=== PATIENT | female | born 1940 | race Caucasian/White ===

== ENCOUNTER 2017-09-03 14:04 | Outpatient (CLI) | payer OTHER ==
--- NOTE | 2017-09-03 15:21 | US ---
EXAM: Ultrasound bilateral carotid duplex. HISTORY: Visual changes. COMPARISON: None available. TECHNIQUE: Multiple waldrop scale and color Doppler images were obtained. FINDINGS: Please note that estimates of internal carotid artery stenoses are based upon NASCET crite wil. Right carotid: Mild plaquing noted without 50% or greater stenosis. Peak systolic velocity measurem ent in the right internal carotid artery is 1.1 meters per second. Right internal to common carotid artery peak systolic velocity ratio measures 1.5. End diastolic velocity measurement in the right in ternal carotid artery is 0.3 meters per second. Flow in the right vertebral artery is antegrade. Left carotid: Mild plaquing noted without 50% or greater stenosis. Peak systolic velocity measureme nt in the left internal carotid artery is 0.9 meters per second. Left internal to common carotid art karen peak systolic velocity ratio measures 1.2. End diastolic velocity measurement in the left paid intern al carotid artery measures 0.3 meters per second. Flow in the left vertebral artery is antegrade. IMPRESSION: 1. No evidence for 50% or greater stenosis in the right or left internal carotid artery. 2. Antegrade flow in both vertebral arteries.
== END 2017-09-03 14:05 | disposition home or self-care (01) ==
LOC: RAD 14:04
PROVIDERS: ATTEND Family Medicine
DX: H53.10 Unspecified subjective visual disturbances (principal); I10 Essential (primary) hypertension

== ENCOUNTER 2017-11-20 12:46 | Emergency (ER) ==
[2017-11-20 12:56] VITALS: BP 160/92; TEMP 97.9; BMI 23.8
[2017-11-20] MEDS ORDERED: LIDOCAINE HCL 1% SDV IM STA (13:15)
[2017-11-20] MEDS ORDERED: LIDOCAINE HCL 1% SDV SUBCUT STA (13:15)
[2017-11-20] MEDS ORDERED: ROCEPHIN IM STA (13:15)
--- NOTE | 2017-11-20 14:28 | ED.PDOC ---
General ED Provider: Dr. MILLICENT SILVA Chief Complaint: Fall Stated Complaint: fall elbow pain, laceration groin pain Time Seen by Physician: 13:00 (see photos) Mode of Arrival: Walk-In Information Source: Patient Exam Limitations: No limitations Primary Care Provider: CB MAN Nursing and Triage Documentation Reviewed and Agree: Yes Does patient meet sepsis criteria?: Yes If yes, has appropriate treatment been initiated?: No System Inflammatory Response Syndrome: Not Applicable Sepsis Protocol: For patient's 13 years and over: Temp is 96.8 and below OR 101 and greater Pulse >90 BPM Resp >20/minute Acutely Altered Mental Status Are patient's symptoms suggestive of a new infection, such as: -Pneumonia -Skin, Soft Tissue -Endocarditis -UTI -Bone, Joint Infection -Implantable Device -Acute Abdominal Infection -Wound Infection -Meningitis -Blood Stream Catheter Infection -Unknown Trauma/Injury Complaint Exam - Trauma Complaint/Exam Location of Pain or Injury: Reports: Other (pelvis, elbow pain) Mechanism of Injury: Reports: Fall Onset/Duration: this morning was seen at [facility] Symptoms Are: Still present Timing of Treatment: Delayed Initial Severity: Moderate (pain elow left) Current Severity: Mild Character: Reports: Aching Aggravating: Reports: Movement Alleviating: Reports: Rest Associated Signs and Symptoms: Denies: LOC, Confusion, Memory loss, Lethargy, Vomiting, Bleeding Related History: Reports: Similar episode : No Penetrating Injury Risk Factors: Reports: None Related Surgical History: Reports: None Nexus Low Risk Criteria: No post-midline CS tender, No evidence of intoxicat., No Altered LOC, No distracting injuries Immobilization Removed Post Exam: No Glascow Coma Scale (see protocol): 15 Compartment Syndrome Risk Factors: Present: Pain Trauma Findings: Present: Pelvic tenderness Skin Findings: Present: Laceration (see photos ) Differential Diagnoses: Laceration, Sprain, Strain Review of Systems - Review Of Systems Constitutional: Reports: No symptoms Eyes: Reports: No symptoms Ears, Nose, Mouth, Throat: Reports: No symptoms Respiratory: Reports: No symptoms Cardiac: Reports: No symptoms GI: Reports: No symptoms : Reports: No symptoms Musculoskeletal: Reports: No symptoms Skin: Reports: Other (laceration see photos) Neurological: Reports: No symptoms Endocrine: Reports: No symptoms Hematologic/Lymphatic: Reports: No symptoms All Other Systems: Reviewed and Negative Past Medical History - Past Medical History Previously Healthy: Yes Endocrine: Reports: None Cardiovascular: Reports: None Respiratory: Reports: None Hematological: Reports: None Gastrointestinal: Reports: None Genitourinary: Reports: None Neuro/Psych: Reports: None Musculoskeletal: Reports: None Cancer: Reports: None Last Menstrual Period: NA - Surgical History General Surgical History: Reports: None - Family History Family History: Reports: None - Social History Smoking Status: Never smoker Hx Substance Use: No Alcohol Screening: None - Immunizations Tetanus Shot up to Date: Yes (GOT ONE AT [facility] TODAY) Physical Exam - Physical Exam Appearance: Well-appearing, No pain distress, Well-nourished Eyes: RAJANI, EOMI, Conjunctiva clear ENT: Ears normal, Nose normal, Oropharynx normal Respiratory: Airway patent, Breath sounds clear, Breath sounds equal, Respirations nonlabored Cardiovascular: RRR, Pulses normal, No rub, No murmur GI/: Soft, Nontender, No masses, Bowel sounds normal, No Organomegaly Musculoskeletal: Normal strength, ROM intact, No edema, No calf tenderness Skin: Warm, Dry (laceration see photos) Neurological: Sensation intact, Motor intact, Reflexes intact, Cranial nerves intact, Alert, Oriented Psychiatric: Affect appropriate, Mood appropriate Interpretation - Radiology Interpretation Radiology Interpretation By: Radiologist Procedures - Laceration/Wound Repair No standard instances Wound Description: Flap Wound Length (cm): 7cm Wound Width: 2cm Wound Depth: 4mm Wound Explored: Contaminated Wound Irrigated: Yes Wound Prep: Saline, Betadine Anesthesia: Lidocaine (10 ml plain) Wound Debrided: Minimal Undermining: Moderate Wound Margins: Vermilion border aligned Wound Repaired With: Sutures Suture Size and Type: 2 vicoryl, 10 and 3 prolene 15 sutures respectively Layer Closure?: Yes Deep Layer Suture Size and Type: see above see photos Sterile Dressing Applied?: No Splint Applied?: Yes Sling Applied?: Yes Critical Care Note - Critical Care Note Total Time (mins): 0 Course - Course Orders, Labs, Meds: Orders Category Date Time Status Ceftriaxone Sodium [Rocephin] MEDS 11/20/17 13:15 Discontinued 1 gm IM ONCE STA Lidocaine HCl/Pf [Lidocaine HCl 1% Sdv] MEDS 11/20/17 13:15 Discontinued 10 ml SUBCUT ONCE STA Lidocaine HCl/Pf [Lidocaine HCl 1% Sdv] MEDS 11/20/17 13:15 Discontinued 2.1 ml IM ONCE STA CT PELVIS W/O CONTRAST Stat RADS 11/20/17 14:19 Ordered ELBOW, LEFT MIN 3 VIEWS Stat RADS 11/20/17 14:18 Ordered Medications Discontinued Medications Generic Name Dose Route Start Last Admin Trade Name [place] PRN Reason Stop Dose Admin Ceftriaxone Sodium 1 gm 11/20/17 13:15 Rocephin IM 11/20/17 13:16 ONCE STA Lidocaine HCl 10 ml 11/20/17 13:15 Lidocaine Hcl 1% Sdv SUBCUT 11/20/17 13:16 ONCE STA Lidocaine HCl 2.1 ml 11/20/17 13:15 Lidocaine Hcl 1% Sdv IM 11/20/17 13:16 ONCE STA Vital Signs: Temp Pulse Resp BP Pulse Ox 11/20/17 12:49 97.9 F 77 16 160/92 H 95 Departure - Departure Time of Disposition: 16:00 Disposition: HOME SELF-CARE Discharge Problem: Laceration Condition: Good Pt referred to PMD for follow-up: Yes IPMP verified?: No Additional Instructions: Please call your Family Physician as soon as possible to schedule a follow-up appointment. Prescriptions: Hydrocodone/Acetaminophen [[place] 5-325 Tablet] 1 each PO Q6HR PRN #12 tablet PRN Reason: PAIN Allergies/Adverse Reactions: Allergies No Known Allergies Allergy (Unverified 11/20/17 12:48) Home Medications: Ambulatory Orders Hydrocodone/Acetaminophen [[place] 5-325 Tablet] 1 each PO Q6HR PRN #12 tablet Disposition Discussed With: Patient, Family
--- NOTE | 2017-11-20 14:43 | DI ---
EXAM: Three views of the left elbow. History: Left elbow pain. Findings: No acute fracture or dislocation. Joint spaces are relatively preserved. 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 Impression: 1. No acute osseous abnormality. 2. Posterior subcutaneous edema with soft tissue air. Differential diagnosis includes trauma versus deep soft tissue infection.
--- NOTE | 2017-11-20 14:45 | CT ---
EXAM: CT pelvis without contrast HISTORY: Fall. COMPARISON: None TECHNIQUE: Serial axial images of the pelvis were obtained without contrast. These were viewed in m ultiple planes. FINDINGS: There is degenerative change and osteophyte formation of the bilateral sacroiliac joints. There is degenerative change with narrowing and osteophyte formation of the hips. There is degenerat susi disease of the lumbosacral spine. Soft tissues in the pelvis demonstrate normal small bowel and colon. The appendix is normal. Uterus is normal. Urinary bladder is partially distended. IMPRESSION: 1. No acute abnormality or displaced fracture of the pelvis. 2. Degenerative disease of the sacroiliac joints, hips and the lumbosacral spine.
== END 2017-11-20 15:05 | disposition home or self-care (01) ==
LOC: ED 12:46
DX: S51.012A Laceration without foreign body of left elbow, initial encounter (principal); R10.2 Pelvic and perineal pain; W19.XXXA Unspecified fall, initial encounter
CPT/HCPCS: 96372; 99283